=== PATIENT | male | born 1940 | race Hispanic/Latino ===

== ENCOUNTER → 2018-08-26 | Outpatient (CLI) | payer OTHER | END | disposition home or self-care (01) | LOC: SHCH 13:30 | PROVIDERS: ATTEND Internal Medicine Cardiovascular Disease | DX: I08.0 Rheumatic disorders of both mitral and aortic valves (principal); I48.0 Paroxysmal atrial fibrillation | CPT/HCPCS: 93306 ==

== ENCOUNTER 2018-11-05 10:20 | Day surgery (SDC) | payer OTHER ==
[2018-11-02 16:05] VITALS: BP 154/81
[2018-11-02 16:07] LABS: EOSINOPHILS % (AUTO) 1.2 % (0.0-8.0); HEMATOCRIT 45.6 % (42-54); MEAN CORPUSCULAR HEMOGLOBIN 31.3 pg (27.0-33.0); MEAN CORPUSCULAR HGB CONC 32.9 g/dL (32.0-36.0); MEAN CORPUSCULAR VOLUME 95.2 fL (79-99); MONOCYTES % (AUTO) 7.6 % (3.0-13.0); NEUTROPHILS % (AUTO) 28.2 % (40.0-77.0); NUCLEATED RED BLOOD CELLS 0.1 % (0.0-0.19); PLATELET COUNT (AUTO) 204 K/uL (130-400); RED BLOOD CELL COUNT(AUTO) 4.79 MIL/uL (4.50-6.20); WHITE BLOOD COUNT (AUTO) 10.5 K/uL (4.8-10.8)
[2018-11-02 16:14] LABS: CREATININE 1.1 mg/dL (0.5-1.5); POTASSIUM 4.7 mmol/L (3.5-5.1)
[2018-11-02 16:45] LABS: INR 1.04 (0.85-1.15); PARTIAL THROMBOPLASTIN TIME 28.8 SEC (26.3-35.5); PROTHROMBIN TIME 10.9 SEC (9.6-11.6)
[~2018-11-05] VITALS: Ht 185.4 cm; Wt 84.0 kg
[2018-11-05] VITALS (14 sets, daily range): BP systolic 101–175; BP diastolic 48–108
[~2018-11-05 10:20] MED LIST: APIX5TAB PO; GLIP5TAB11 PO; METF-444 PO; METO50TA18 PO; PRAV10TA39 PO; SODIUM CHLORIDE 0.9% 1000ML 1,000 ML IV SCH
[2018-11-05] MEDS ORDERED: FENTANYL CITRATE PF 50 MCG/1 ML 2ML VIAL ONE (15:14)
[2018-11-05] MEDS ORDERED: MIDAZOLAM HCL 1 MG/ML 2ML VIAL ONE (15:14)
== END 2018-11-05 17:22 | disposition home or self-care (01) ==
LOC: DAH 10:20
PROVIDERS: ATTEND Internal Medicine Cardiovascular Disease
DX: I48.1 Persistent atrial fibrillation (principal); R00.1 Bradycardia, unspecified; I10 Essential (primary) hypertension; E78.5 Hyperlipidemia, unspecified; E11.9 Type 2 diabetes mellitus without complications; Z79.01 Long term (current) use of anticoagulants; Z79.84 Long term (current) use of oral hypoglycemic drugs; Z79.899 Other long term (current) drug therapy; Z98.890 Other specified postprocedural states; Z72.89 Other problems related to lifestyle; Z83.3 Family history of diabetes mellitus
CPT/HCPCS: 36415; 80048; 82948; 85025; 85610; 85730; 92960; 93005 ×2; A4606; J2250; J3010; J7030; 99152

== ENCOUNTER 2018-12-23 06:45 | Observation (INO) | payer OTHER ==
[2018-12-21 09:17] VITALS: BP 172/95
[2018-12-21 09:22] LABS: BASOPHILS % (AUTO) 0.5 % (0.0-5.0); EOSINOPHILS % (AUTO) 1.1 % (0.0-8.0); HEMATOCRIT 42.3 % (42-54); LYMPHOCYTES % (AUTO) 58.6 % (21.0-51.0); MEAN CORPUSCULAR HEMOGLOBIN 31.9 pg (27.0-33.0); MEAN CORPUSCULAR HGB CONC 34.4 g/dL (32.0-36.0); MEAN CORPUSCULAR VOLUME 92.7 fL (79-99); MONOCYTES % (AUTO) 6.9 % (3.0-13.0); NEUTROPHILS % (AUTO) 32.9 % (40.0-77.0); NUCLEATED RED BLOOD CELLS 0.1 % (0.0-0.19); PLATELET COUNT (AUTO) 176 K/uL (130-400); RED BLOOD CELL COUNT(AUTO) 4.56 MIL/uL (4.50-6.20); RED CELL DISTRIBUTION WIDTH 13.9 % (11.0-15.5); WHITE BLOOD COUNT (AUTO) 8.7 K/uL (4.8-10.8)
[2018-12-21 09:28] LABS: POTASSIUM 4.8 mmol/L (3.5-5.1)
[2018-12-21 09:36] LABS: INR 1.01 (0.85-1.15); PARTIAL THROMBOPLASTIN TIME 27.4 SEC (26.3-35.5); PROTHROMBIN TIME 10.6 SEC (9.6-11.6)
[~2018-12-23] VITALS: Ht 182.9 cm; Wt 86.2 kg
[2018-12-23] VITALS (11 sets, daily range): BP systolic 124–155; BP diastolic 77–91
[~2018-12-23 06:45] MED LIST changes: -SODIUM CHLORIDE 0.9% 1000ML 1,000 ML IV SCH; +SODIUM CHLORIDE 0.9% 50 ML IV SCH
[2018-12-23] MEDS ORDERED: SODIUM CHLORIDE 0.9% 1000ML 1,000 ML IV ONE (08:39)
[2018-12-23] MEDS ORDERED: CEFAZOLIN SODIUM 1 GM VIAL ONE (15:11)
[2018-12-23] MEDS ORDERED: LIDOCAINE HCL 1% MDV 50ML VIAL ONE (15:12)
[2018-12-23] MEDS ORDERED: BUPIVACAINE/PF 0.25% 10ML VIAL IJ ONE (15:12)
[2018-12-23] MEDS ORDERED: MIDAZOLAM HCL 1 MG/ML 2ML VIAL ONE (16:01)
[2018-12-23] MEDS ORDERED: FENTANYL CITRATE PF 50 MCG/1 ML 2ML VIAL ONE (16:01)
[2018-12-23] MEDS ORDERED: IOHEXOL-350 50ML VIAL IV ONE (16:15)
[2018-12-23] MEDS ORDERED: LABETALOL 20 MG/4 ML DISP.SYRIN IV ONE ×2 (16:22→16:45)
[2018-12-23] MEDS ORDERED: LABETALOL HCL 5 MG/ML 20ML VIAL IV ONE (16:55)
[2018-12-23] MEDS: METFORMIN HCL 500 MG TABLET PO SCH (17:14)
[2018-12-23] MEDS: METOPROLOL TARTRATE 25 MG TAB PO SCH (20:36)
[2018-12-23] MEDS ORDERED: **HM**Pravastatin Sodium 10 MG PO SCH (21:00)
[2018-12-24 03:00] VITALS: BP 140/91
--- NOTE | 2018-12-24 05:16 | NUR ---
PATIENT BEDREST BEDREST OVER AT 0. PATIENT HAS LEFT ARM IN SLING. 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 NOT NEW WEAKNESS. NO TINGLING OR PAIN TO LEFT SHOULDER OR ARM. EDUCATED ON USE OF LEFT EXTREMITY. BILATERAL RADIAL PULSES PALPABLE. L SHOULDER SITE WITHOUT HEMATOMA. WILL CONTINUE TO MONITOR
[2018-12-24 07:38] VITALS: BP 152/84
[2018-12-24 07:54] VITALS: BP 152/84
--- NOTE | 2018-12-24 08:00 | NUR ---
AM ASSESSMENT PT SITTING IN CHAIR, WATCHING TV. FAMILY @ BEDSIDE. A/O X 3. NO SOB. NO DISTRESS NOTED. DENIES CHEST PAIN OR DISCOMFORT. DENIES PALPITATIONS. DENIES INCISIONAL PAIN. LT UPPER CHEST DSG DRY & INTACT. NO BLEEDING, NO HEMATOMA NOTED. SLING TO LT ARM. TELE: PACED 70s. DENIES N/V AND/OR DIARRHEA. UP W/ASSISTANCE. INSTRUCTED TO CALL FOR ASSISTANCE. CALL MIKE W/IN REACH.
[2018-12-24] MEDS ORDERED: GLIPIZIDE 5 MG TABLET PO SCH (09:00)
[2018-12-24] MEDS: METOPROLOL TARTRATE 25 MG TAB PO SCH (09:04)
[2018-12-24] MEDS: METFORMIN HCL 500 MG TABLET PO SCH (09:05)
[2018-12-24] MEDS ORDERED: CEPH250 PO (11:06)
[2018-12-24 11:35] VITALS: BP 134/83
--- NOTE | 2018-12-24 12:05 | NUR ---
DISCHARGE VERBAL & WRITTEN DISCHARGE INSTRUCTIONS REVIEWED & GIVEN TO PT & SPOUSE. QUESTIONS ENCOURAGED & CLARIFIED. PROPER CARE & ACTIVITY AFTER PPM PLACEMENT REVIEWED. ARM PRECAUTIONS REINFORCED. PT INFORMED OF NO DRIVING TO 3-4 WEEKS, UNLESS CLEARED BY MD PRIOR. PT TO RESUME TAKING ELIQUIS TOMORROW, 12/25/18. PRESCRIPTION FOR ANTIBIOTIC GIVEN & REVIEWED. SIGNED COPY OF PRESCRIPTION PLACED IN CHART. IV DISCONTINUED. TELE ALBINO REMOVED. PT & FAMILY TO GATHER PERSONAL BELONGINGS. WILL NOTIFY STAFF WHEN READY TO BE TAKEN TO PRIVATE VEHICLE.
--- NOTE | 2018-12-24 12:38 | NUR ---
DISCHARGE PT TAKEN TO PRIVATE VEHICLE VIA WC BY Maria Luisa HERNANDEZ PCP, ACCOMPANIED BY FAMILY. NO DISTRESS NOTED.
== END 2018-12-24 12:38 | disposition home or self-care (01) ==
LOC: DAH 06:45 → 2AH 17:01
PROVIDERS: ADMIT Internal Medicine Cardiovascular Disease; ATTEND Internal Medicine Cardiovascular Disease
DX: I48.0 Paroxysmal atrial fibrillation (principal); E78.5 Hyperlipidemia, unspecified; I51.81 Takotsubo syndrome; E11.9 Type 2 diabetes mellitus without complications; Z82.49 Family history of ischemic heart disease and other diseases of the circulatory system; D68.59 Other primary thrombophilia; Z79.899 Other long term (current) drug therapy; Z79.01 Long term (current) use of anticoagulants
CPT/HCPCS: 33208; 36415; 71046; 80048; 82948 ×4; 85025; 85610; 85730; 93005; A4215; A4216; A4221; A4222; A4223 ×3; A4600; A4606; C1785; C1898 ×2; G0378 ×20; J0690; J2250; J3010; J3490 ×3; J7030; Q9967; 99156; 99157

== ENCOUNTER → 2020-02-07 | Outpatient (CLI) | payer OTHER ==
[~2020-02-07] MED LIST changes: +AMOX1TAB15 PO; +DILT300C51 PO; -METO50TA18 PO; +PROP225C8 PO; -SODIUM CHLORIDE 0.9% 50 ML IV SCH
== END | disposition home or self-care (01) ==
LOC: OIH 15:32
PROVIDERS: ATTEND Family Medicine
DX: J98.11 Atelectasis (principal); R06.02 Shortness of breath; R53.83 Other fatigue; Z95.0 Presence of cardiac pacemaker
CPT/HCPCS: 71046

== ENCOUNTER → 2020-02-22 | Outpatient (CLI) | payer OTHER | END | disposition home or self-care (01) | LOC: SHCH 15:31 | PROVIDERS: ATTEND Internal Medicine Cardiovascular Disease | DX: I27.20 Pulmonary hypertension, unspecified (principal); I48.20 Chronic atrial fibrillation, unspecified; R06.00 Dyspnea, unspecified; G24.9 Dystonia, unspecified; F32.9 Major depressive disorder, single episode, unspecified | CPT/HCPCS: 93306; 93356 ==

== ENCOUNTER 2020-03-05 08:05 | Day surgery (SDC) | payer OTHER ==
[2020-03-02 15:44] VITALS: BP 91/63
[2020-03-02 16:06] LABS: BASOPHILS % (AUTO) 1.3 % (0.0-5.0); EOSINOPHILS % (AUTO) 1.2 % (0.0-8.0); HEMATOCRIT 47.1 % (42-54); LYMPHOCYTES % (AUTO) 62.4 % (21.0-51.0); MEAN CORPUSCULAR HEMOGLOBIN 29.7 pg (27.0-33.0); MEAN CORPUSCULAR HGB CONC 33.1 g/dL (32.0-36.0); MEAN CORPUSCULAR VOLUME 89.7 fL (79-99); MONOCYTES % (AUTO) 6.5 % (3.0-13.0); NEUTROPHILS % (AUTO) 28.4 % (40.0-77.0); PLATELET COUNT (AUTO) 200 K/uL (130-400); RED BLOOD CELL COUNT(AUTO) 5.25 MIL/uL (4.50-6.20); RED CELL DISTRIBUTION WIDTH 13.2 % (11.0-15.5); WHITE BLOOD COUNT (AUTO) 10.7 K/uL (4.8-10.8)
[2020-03-02 16:15] LABS: APPEARANCE,URINE Clear (CLEAR); BILIRUBIN,URINE Negative (NEGATIVE); COLOR,URINE Yellow (YELLOW); GLUCOSE, URINE (UA) Negative (NEGATIVE); KETONES,URINE Negative (NEGATIVE); LEUKOCYTE ESTERASE ,URINE Negative (NEGATIVE); NITRATE,URINE Negative (NEGATIVE); OCCULT BLOOD,URINE Negative (NEGATIVE); PROTEIN,URINE Negative (NEGATIVE)
[2020-03-02 16:16] LABS: CREATININE 1.5 mg/dL (0.5-1.5); POTASSIUM 3.8 mmol/L (3.5-5.1)
[2020-03-02 16:20] LABS: INR 1.11 (0.85-1.15); PARTIAL THROMBOPLASTIN TIME 28.3 SEC (26.3-35.5); PROTHROMBIN TIME 11.9 SEC (9.6-11.6)
[2020-03-02 16:58] LABS: B-TYPE NATRIURETIC PEPTIDE 292 pg/mL (0-100)
[2020-03-02 17:29] LABS: EOSINOPHILS % (MANUAL) 2 % (1-6); LYMPHOCYTES % (MANUAL) 46 % (22-44); MAN.DIFF COMMENT-IMPRESSION MANUAL DIFFERENTIAL; METAMYELOCYTES % 1 % (0-0); MONOCYTES % (MANUAL) 6 % (2-9); PLATELET MORPHOLOGY COMMENT ADEQUATE; REACTIVE LYMPHOCYTES 17 % (0-0); SEGMENTED NEUTROPHILS % 28 % (40-70)
--- NOTE | 2020-03-02 18:20 | NUR ---
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 no new orders at this time. informed cxr still pending to be read.
[~2020-03-05] VITALS: Ht 180.3 cm; Wt 76.8 kg
[2020-03-05] VITALS (8 sets, daily range): BP systolic 85–121; BP diastolic 43–78
[~2020-03-05 08:05] MED LIST changes: -AMOX1TAB15 PO; +METO-409 PO; +POTA-79 PO; -PROP225C8 PO; +SODIUM CHLORIDE 0.9% 500ML 500 ML IV SCH; +TAMS-1 PO; +TORS20TA4 PO
[2020-03-05] MEDS ORDERED: SODIUM CHLORIDE 0.9% 1000ML 1,000 ML IV ONE (09:21)
[2020-03-05] MEDS ORDERED: METO200T49 PO (10:00)
[2020-03-05] MEDS ORDERED: METO100T14 PO (10:00)
[2020-03-05] MEDS ORDERED: LIDOCAINE HCL 1% 20 ML VIAL ONE (12:11)
[2020-03-05] MEDS ORDERED: IOHEXOL 350 MG/ML 100ML INFUS..BTL IV ONE ×2 (12:12→12:41)
[2020-03-05] MEDS ORDERED: NITROGLYCERIN 2 MG/VIAL VIAL IV ONE (12:12)
[2020-03-05] MEDS ORDERED: IOHEXOL-350 50ML VIAL IV ONE (12:12)
[2020-03-05] MEDS ORDERED: NICARDIPINE HCL 25 MG/10 ML ML IV ONE (12:30)
[2020-03-05] MEDS ORDERED: FENTANYL CITRATE PF 50 MCG/1 ML 2ML VIAL ONE (12:48)
[2020-03-05] MEDS ORDERED: MIDAZOLAM HCL 1 MG/ML 2ML VIAL ONE (12:48)
[2020-03-05] MEDS ORDERED: FUROSEMIDE 10 MG/ML 2ML VIAL ONE (13:08)
--- NOTE | 2020-03-05 14:03 | NUR ---
CALLED OFFICE FOR APPT. PER [employer], APPT CUT PLUG PACKER BUSY JUST LEAVE MESSAGE. LEFT MESSAGE FOR CUT PLUG PACKER TO CONTACT PT WITH APPT.
--- NOTE | 2020-03-05 16:18 | NUR ---
PT STABLE, NO DISTRESS, VITALS WNL. RT GROIN DRESSING D/I. NO ACTIVE BLEEDING OR HEMATOMA NOTED TO RT GROIN. PT IV D/C, CATHETER INTACT. PT DRESSED WITH ASSISTANCE. PT DRIVEN HOME BY SPOUSE. PERSONAL BELONGINGS WITH PT.
== END 2020-03-05 16:18 | disposition home or self-care (01) ==
LOC: DAH 08:05
PROVIDERS: ATTEND Internal Medicine Cardiovascular Disease
DX: I11.0 Hypertensive heart disease with heart failure (principal); I50.41 Acute combined systolic (congestive) and diastolic (congestive) heart failure; E78.5 Hyperlipidemia, unspecified; I48.19 Other persistent atrial fibrillation; E11.9 Type 2 diabetes mellitus without complications; I95.9 Hypotension, unspecified; Z79.01 Long term (current) use of anticoagulants; Z79.4 Long term (current) use of insulin; Z79.82 Long term (current) use of aspirin; Z79.899 Other long term (current) drug therapy
CPT/HCPCS: 36415; 71045; 80048; 81003; 82948 ×2; 83880; 85025; 85610; 85730; 93005; 93458; A4215; A4216; A4221; A4222; A4223 ×3; A4606; A4663; C1760; C1894 ×2; J1644; J1940; J2250; J3010; J3490; J7030; Q9965; Q9967 ×2

== ENCOUNTER → 2022-04-07 | Outpatient (CLI) | payer OTHER ==
[~2022-04-07] MED LIST changes: -DILT300C51 PO; -METO-409 PO; +METO200T49 PO; -SODIUM CHLORIDE 0.9% 500ML 500 ML IV SCH
== END | disposition home or self-care (01) ==
LOC: SHCH 14:49
PROVIDERS: ATTEND Internal Medicine Cardiovascular Disease
DX: I11.9 Hypertensive heart disease without heart failure (principal); I48.20 Chronic atrial fibrillation, unspecified; I48.0 Paroxysmal atrial fibrillation; E11.9 Type 2 diabetes mellitus without complications; E78.5 Hyperlipidemia, unspecified; I08.1 Rheumatic disorders of both mitral and tricuspid valves
CPT/HCPCS: 93306

== ENCOUNTER 2022-06-11 07:32 | Day surgery (SDC) | payer OTHER ==
[2022-06-09 12:56] VITALS: BP 136/66
[2022-06-09 12:56] LABS: BASOPHILS % (AUTO) 0.9 % (0.0-5.0); EOSINOPHILS % (AUTO) 0.8 % (0.0-8.0); HEMATOCRIT 41.4 % (42-54); LYMPHOCYTES % (AUTO) 52.5 % (21.0-51.0); MEAN CORPUSCULAR HEMOGLOBIN 30.5 pg (27.0-33.0); MEAN CORPUSCULAR HGB CONC 33.3 g/dL (32.0-36.0); MEAN CORPUSCULAR VOLUME 91.4 fL (79-99); MONOCYTES % (AUTO) 6.3 % (3.0-13.0); NEUTROPHILS % (AUTO) 39.3 % (40.0-77.0); PLATELET COUNT (AUTO) 207 K/uL (130-400); RED BLOOD CELL COUNT(AUTO) 4.53 MIL/uL (4.50-6.20); RED CELL DISTRIBUTION WIDTH 14.2 % (11.0-15.5); WHITE BLOOD COUNT (AUTO) 13.9 K/uL (4.8-10.8)
[2022-06-09 13:09] LABS: INR 0.99 (0.85-1.15); PROTHROMBIN TIME 10.8 SEC (9.6-11.6)
[2022-06-09 13:10] LABS: PARTIAL THROMBOPLASTIN TIME 29.2 SEC (26.3-35.5)
[2022-06-09 13:32] LABS: CREATININE 1.1 mg/dL (0.5-1.5); POTASSIUM 4.2 mmol/L (3.5-5.1)
[2022-06-11] VITALS (10 sets, daily range): BP systolic 121–141; BP diastolic 62–78
[~2022-06-11 07:32] MED LIST changes: +DAPA10TA PO; +LISI2.5T13 PO; -METF-444 PO; +METF-446 PO; +METO-391 PO; +METO-409 PO; -METO200T49 PO; -POTA-79 PO
[2022-06-11 08:11] LABS: BASOPHILS % (AUTO) 1.1 % (0.0-5.0); EOSINOPHILS % (AUTO) 0.8 % (0.0-8.0); HEMATOCRIT 40.2 % (42-54); LYMPHOCYTES % (AUTO) 66.5 % (21.0-51.0); MEAN CORPUSCULAR HEMOGLOBIN 30.7 pg (27.0-33.0); MEAN CORPUSCULAR HGB CONC 32.3 g/dL (32.0-36.0); MONOCYTES % (AUTO) 5.6 % (3.0-13.0); NEUTROPHILS % (AUTO) 25.7 % (40.0-77.0); PLATELET COUNT (AUTO) 212 K/uL (130-400); RED BLOOD CELL COUNT(AUTO) 4.23 MIL/uL (4.50-6.20); RED CELL DISTRIBUTION WIDTH 14.2 % (11.0-15.5); WHITE BLOOD COUNT (AUTO) 12.5 K/uL (4.8-10.8)
[2022-06-11] MEDS ORDERED: MIDAZOLAM HCL 1 MG/ML 2ML VIAL ONE ×5 (08:48→11:35)
[2022-06-11] MEDS ORDERED: IODIXANOL 320 MG/ML 100 ML VIAL ONE (08:48)
[2022-06-11] MEDS ORDERED: BUPIVACAINE/PF 0.25% 10ML VIAL IJ ONE (08:49)
[2022-06-11] MEDS ORDERED: MEPERIDINE-PF 25 MG/ML SYG ONE ×2 (08:49→09:04)
[2022-06-11] MEDS ORDERED: LIDOCAINE HCL 1% MDV 50ML VIAL ONE ×2 (08:49→11:12)
[2022-06-11] MEDS ORDERED: CEFAZOLIN SODIUM 1 GM VIAL ONE (09:04)
[2022-06-11] MEDS ORDERED: 0.9%NACL 1000ML 1,000 ML IV ONE (09:05)
[2022-06-11] MEDS ORDERED: FENTANYL CITRATE PF 50 MCG/1 ML 2ML VIAL ONE ×3 (09:41→11:35)
[2022-06-11] MEDS ORDERED: BACITRACIN 1 EACH PACKET TP ONE (10:34)
[2022-06-11] MEDS ORDERED: HEPARIN 10,000 UNIT/10ML (1,000 UNIT/ML) VIAL ONE ×2 (11:12→11:19)
[2022-06-11] MEDS ORDERED: ISOPROTERENOL HCL 0.2 MG/ML AMP/VIAL/BAG ONE (12:24)
[2022-06-11] MEDS ORDERED: TRAM50TA4 PO (13:14)
[2022-06-11] MEDS ORDERED: ACETAMINOPHEN WITH CODEINE 1 TAB TAB PO PRN (13:30)
[2022-06-11] MEDS ORDERED: ACETAMINOPHEN 500 MG TABLET PO PRN (13:30)
== END 2022-06-11 16:45 | disposition home or self-care (01) ==
LOC: DAH 07:32
PROVIDERS: ATTEND Internal Medicine Cardiovascular Disease
DX: I44.2 Atrioventricular block, complete (principal); I42.0 Dilated cardiomyopathy; I44.7 Left bundle-branch block, unspecified; I48.21 Permanent atrial fibrillation; I11.0 Hypertensive heart disease with heart failure; I50.43 Acute on chronic combined systolic (congestive) and diastolic (congestive) heart failure; E11.59 Type 2 diabetes mellitus with other circulatory complications; I25.2 Old myocardial infarction; E78.5 Hyperlipidemia, unspecified; Z79.84 Long term (current) use of oral hypoglycemic drugs; Z79.01 Long term (current) use of anticoagulants; Z79.899 Other long term (current) drug therapy; Z98.890 Other specified postprocedural states; Z82.49 Family history of ischemic heart disease and other diseases of the circulatory system
CPT/HCPCS: 80048; 85025 ×2; 85610; 85730; 36415 ×2; 93005 ×2; 93653; 33225; 93623; 93650; 33229; 82948 ×2; 71045; C1769 ×2; C1894; C2621; C1900; C1732; A4649 ×2; J3010 ×3; J0690; J7030; J3490 ×4; J1644 ×2; J2250 ×5; J2175 ×2; Q9967; A4215; A4222; A4221; A4663; A4216; A4606; A4223 ×3; 99156; 99157

== ENCOUNTER → 2023-06-03 | Outpatient (CLI) | payer OTHER ==
[~2023-06-03] MED LIST changes: -GLIP5TAB11 PO; +GLIP5TAB15 PO; +TRAM50TA4 PO
[2023-06-03 12:05] LABS: BASOPHILS # (AUTO) 0.15 K/uL (0.00-0.20); BASOPHILS % (AUTO) 1.1 % (0.0-5.0); EOSINOPHILS # (AUTO) 0.15 K/uL (0.00-0.70); EOSINOPHILS % (AUTO) 1.1 % (0.0-8.0); IMMATURE GRANULOCYTE ABSOLUTE 0.03 K/uL (0-1); LYMPHOCYTES % (AUTO) 64.2 % (21.0-51.0); MEAN CORPUSCULAR HEMOGLOBIN 32.8 pg (27.0-33.0); MEAN CORPUSCULAR HGB CONC 34.7 g/dL (32.0-36.0); MEAN CORPUSCULAR VOLUME 94.7 fL (79-99); MONOCYTES # (AUTO) 0.8 K/uL (0.1-1.0); MONOCYTES % (AUTO) 5.8 % (3.0-13.0); NEUTROPHILS # (AUTO) 3.9 K/uL (1.8-7.7); NEUTROPHILS % (AUTO) 27.6 % (40.0-77.0); PLATELET COUNT (AUTO) 185 K/uL (130-400); RED BLOOD CELL COUNT(AUTO) 4.54 MIL/uL (4.50-6.20); RED CELL DISTRIBUTION WIDTH 13.9 % (11.0-15.5)
[2023-06-03 12:27] LABS: ALBUMIN 4.1 g/dL (3.5-5.0); BILIRUBIN,TOTAL 1.6 mg/dL (0.2-1.0); CREATININE 1.2 mg/dL (0.5-1.5); POTASSIUM 4.4 mmol/L (3.5-5.1); TOTAL PROTEIN, SERUM 7.5 g/dL (6.0-8.3)
[2023-06-03 12:37] LABS: B-TYPE NATRIURETIC PEPTIDE 122 pg/mL (0-100)
[2023-06-03 12:49] LABS: BASOPHILS % (MANUAL) 1 % (0-2); BLASTS, MANUAL % 6 (0-0); EOSINOPHILS % (MANUAL) 2 % (1-6); LYMPHOCYTES % (MANUAL) 63 % (22-44); MAN.DIFF COMMENT-IMPRESSION MANUAL DIFFERENTIAL; MONOCYTES % (MANUAL) 4 % (2-9); PLATELET MORPHOLOGY COMMENT ADEQUATE; REACTIVE LYMPHOCYTES 3 % (0-0); SEGMENTED NEUTROPHILS % 21 % (40-70); TOTAL CELLS COUNTED 100
== END | disposition home or self-care (01) ==
LOC: LAB 09:52
PROVIDERS: ATTEND Internal Medicine Cardiovascular Disease
DX: I48.21 Permanent atrial fibrillation (principal); E11.59 Type 2 diabetes mellitus with other circulatory complications
CPT/HCPCS: 36415; 80053; 80061; 83880; 85025

== ENCOUNTER → 2023-10-06 | Outpatient (CLI) | payer OTHER ==
[2023-10-06 12:12] LABS: BASOPHILS # (AUTO) 0.13 K/uL (0.00-0.20); EOSINOPHILS # (AUTO) 0.17 K/uL (0.00-0.70); EOSINOPHILS % (AUTO) 1.4 % (0.0-8.0); HEMATOCRIT 42.3 % (42-54); IMMATURE GRANULOCYTE ABSOLUTE 0.02 K/uL (0-1); LYMPHOCYTES # (AUTO) 7.9 K/uL (1.0-4.8); LYMPHOCYTES % (AUTO) 62.8 % (21.0-51.0); MEAN CORPUSCULAR HEMOGLOBIN 32.3 pg (27.0-33.0); MEAN CORPUSCULAR HGB CONC 33.6 g/dL (32.0-36.0); MEAN CORPUSCULAR VOLUME 96.4 fL (79-99); MONOCYTES # (AUTO) 0.8 K/uL (0.1-1.0); MONOCYTES % (AUTO) 6.5 % (3.0-13.0); NEUTROPHILS # (AUTO) 3.5 K/uL (1.8-7.7); NEUTROPHILS % (AUTO) 28.1 % (40.0-77.0); PLATELET COUNT (AUTO) 153 K/uL (130-400); RED BLOOD CELL COUNT(AUTO) 4.39 MIL/uL (4.50-6.20); RED CELL DISTRIBUTION WIDTH 13.8 % (11.0-15.5); WHITE BLOOD COUNT (AUTO) 12.5 K/uL (4.8-10.8)
[2023-10-06 12:26] LABS: BILIRUBIN,TOTAL 1.8 mg/dL (0.2-1.0); CREATININE 1.1 mg/dL (0.5-1.3); POTASSIUM 4.1 mmol/L (3.5-5.1); TOTAL PROTEIN, SERUM 7.1 g/dL (6.0-8.3)
== END | disposition home or self-care (01) ==
LOC: LAB 10:10
PROVIDERS: ATTEND Internal Medicine Cardiovascular Disease
DX: I48.0 Paroxysmal atrial fibrillation (principal); I50.22 Chronic systolic (congestive) heart failure
CPT/HCPCS: 36415; 80053; 80061; 85025

== ENCOUNTER → 2024-05-12 | Outpatient (CLI) | payer OTHER ==
[2024-05-12 12:49] LABS: BASOPHILS # (AUTO) 0.16 K/uL (0.00-0.20); BASOPHILS % (AUTO) 1.1 % (0.0-5.0); EOSINOPHILS # (AUTO) 0.16 K/uL (0.00-0.70); EOSINOPHILS % (AUTO) 1.1 % (0.0-8.0); HEMATOCRIT 44.7 % (42-54); IMMATURE GRANULOCYTE ABSOLUTE 0.03 K/uL (0-1); LYMPHOCYTES # (AUTO) 8.9 K/uL (1.0-4.8); LYMPHOCYTES % (AUTO) 59.5 % (21.0-51.0); MEAN CORPUSCULAR HEMOGLOBIN 31.5 pg (27.0-33.0); MEAN CORPUSCULAR HGB CONC 32.4 g/dL (32.0-36.0); MEAN CORPUSCULAR VOLUME 97.2 fL (79-99); NEUTROPHILS # (AUTO) 4.7 K/uL (1.8-7.7); NEUTROPHILS % (AUTO) 31.1 % (40.0-77.0); PLATELET COUNT (AUTO) 169 K/uL (130-400); RED CELL DISTRIBUTION WIDTH 13.6 % (11.0-15.5)
[2024-05-12 13:13] LABS: ALBUMIN 3.9 g/dL (3.5-5.0); BILIRUBIN,TOTAL 1.6 mg/dL (0.2-1.0); POTASSIUM 4.5 mmol/L (3.5-5.1); TOTAL PROTEIN, SERUM 7.1 g/dL (6.0-8.3)
== END | disposition home or self-care (01) ==
LOC: LAB 10:20
PROVIDERS: ATTEND Internal Medicine Cardiovascular Disease
DX: G47.33 Obstructive sleep apnea (adult) (pediatric) (principal); E11.59 Type 2 diabetes mellitus with other circulatory complications; I50.42 Chronic combined systolic (congestive) and diastolic (congestive) heart failure
CPT/HCPCS: 36415; 80053; 80061; 85025